=== PATIENT | male | born 1990 | race Caucasian/White ===

== ENCOUNTER 2024-09-08 08:40 | Emergency (ER) | payer BC ==
[2024-09-08 08:53] VITALS: BP 145/88; PULSE 87; RESP 18; TEMP 98.4; BMI 40.3
[2024-09-08] MEDS ORDERED: FAMOTIDINE 20 MG/50 ML IVPB 20 MG/50 ML MG IVPB ONE (09:22)
[2024-09-08] MEDS ORDERED: ONDANSETRON 4 MG/2 ML VIAL ONE (09:23)
[2024-09-08] MEDS ORDERED: KETOROLAC TROMETHAMINE 30 MG/1 ML VIAL ONE (09:23)
[2024-09-08] MEDS: FAMOTIDINE 20 MG/50 ML IVPB 20 MG/50 ML MG IVPB ONE (09:38)
[2024-09-08] MEDS: KETOROLAC TROMETHAMINE 30 MG/1 ML VIAL IVPUSH ONE (09:38)
[2024-09-08] MEDS: ONDANSETRON 4 MG/2 ML VIAL IVPUSH ONE (09:39)
[2024-09-08 09:52] LABS: BASO % 0.3 % (0-2.0); EOS % 0.1 % (0-4.5); HEMATOCRIT 40.9 % (35.4-49); HEMOGLOBIN 13.6 GM/dL (11.7-16.9); LYMPH % 18.3 % (8-40); MCH 30.4 pg (25.7-33.7); MCHC 33.2 g/dl (32.0-35.9); MEAN CELL VOLUME 91.6 fl (80-96); MEAN PLT VOLUME 8.2 fl (7.5-11.1); MONO % 5.4 % (3.8-10.2); NEUT % 75.9 % (42.8-82.8); PLATELET COUNT 299 10^3/uL (134-434); RBC 4.47 M/mm3 (4.00-5.60); RDW 13.2 % (11.9-15.9); WHITE BLOOD COUNT 14.7 K/mm3 (4.0-10.0)
[2024-09-08 09:54] LABS: EPI CELLS 8 /uL (0-25.1); HYALINE CASTS 2 /uL (0-3.1); PH,URINE 5.5 (5.0-8.0); URINE APPEARANCE CLOUDY; URINE BACTERIA 23 /uL (0-1359); URINE BILIRUBIN NEGATIVE (NEGATIVE); URINE COLOR YELLOW; URINE GLUCOSE (UA) NEGATIVE (NEGATIVE); URINE KETONE NEGATIVE (NEGATIVE); URINE LEUK ESTERASE NEGATIVE (NEGATIVE); URINE NITRITE NEGATIVE (NEGATIVE); URINE PROTEIN 2+ (NEGATIVE); URINE RBC 308 /uL (0-23.9); URINE UROBILINOGEN 0.2 mg/dL (0.2-1.0); URINE WBC 14 /uL (0-25.8)
[2024-09-08 10:06] LABS: POTASSIUM 4.7 mmol/L (3.5-5.1)
[2024-09-08 10:08] LABS: ALBUMIN 4.8 g/dl (3.4-5.0); BLOOD UREA NITROGEN 18.6 mg/dL (7-18); CALCIUM 9.5 mg/dL (8.5-10.1)
[2024-09-08 10:11] LABS: CREATININE 1.2 mg/dL (0.55-1.3)
[2024-09-08 10:13] LABS: BILIRUBIN,TOTAL 0.4 mg/dL (0.2-1); TOT PROT 8.5 g/dl (6.4-8.2)
[2024-09-08 11:07] LABS: URINE CRYSTALS URIC ACID MANY /hpf
[2024-09-08] MEDS ORDERED: ACETAMINOPHEN INJECTION 100 ML ONE (11:50)
[2024-09-08] MEDS: ACETAMINOPHEN 1000 MG/100 ML BAG IVPB ONE (11:55)
[2024-09-08 12:44] LABS: HIV INTERPRETATION NEGATIVE (NEGATIVE)
== END 2024-09-08 13:00 | disposition home or self-care (01) ==
LOC: JER 08:40
PROC: 3E033GC Introduction of Other Therapeutic Substance into Peripheral Vein, Percutaneous Approach (ICD-10-PCS; principal; 2024-09-08)
PROC: 3E033GC Introduction of Other Therapeutic Substance into Peripheral Vein, Percutaneous Approach (ICD-10-PCS; 2024-09-08)
PROC: 3E033NZ Introduction of Analgesics, Hypnotics, Sedatives into Peripheral Vein, Percutaneous Approach (ICD-10-PCS; 2024-09-08)
PROC: 3E0333Z Introduction of Anti-inflammatory into Peripheral Vein, Percutaneous Approach (ICD-10-PCS; 2024-09-08)
DX: R10.31 Right lower quadrant pain (principal); N20.0 Calculus of kidney; R11.2 Nausea with vomiting, unspecified; R10.33 Periumbilical pain
CPT/HCPCS: 36415; 74176-TC; 76870-TC; 80053; 81003; 85025; 86803; 87086; 87389; 99284-25; J0131